=== PATIENT | male | born 1955 | race Caucasian/White ===

== ENCOUNTER 2017-01-13 19:20 | Observation (INO) ==
[2017-01-13] MEDS ORDERED: cefTRIAXone 1,000 MG in SODIUM CHLORIDE 0.9% 100 ML IV STA (19:56)
[2017-01-13] MEDS ORDERED: LABETALOL 20 MG/4 ML SYRINGE IV STA ×2 (19:56→22:59)
[2017-01-13] MEDS ORDERED: ALBUTEROL/IPRATROPIUM 3 ML NEB RESP TX STA (19:56)
[2017-01-13] MEDS ORDERED: cefTRIAXone 1,000 MG VIAL ONE (20:12)
[2017-01-13] MEDS ORDERED: SODIUM CHLORIDE 0.9% 100 ML IV ONE (20:12)
[2017-01-13] MEDS ORDERED: LABETALOL 20 MG/4 ML SYRINGE IV ONE ×2 (20:12→23:01)
[2017-01-13 20:16] LABS: Basophils % 0.5 % (0.0-0.8); Eosinophils # 0.1 10*3/uL (0.0-0.87); Eosinophils % 1.6 % (0.00-10.9); Hematocrit 32.6 VOL% (42.0-52.0); Hemoglobin 10.2 GM/DL (14.0-18.0); Immature Granulocytes % 0.3 %; Immature Granulocytes Absolute 0.03 #; Lymphocytes # 2.2 10*3/uL (1.4-4.0); Lymphocytes % 24.9 % (21.2-54.2); Mean Corpuscular HGB Conc 31.3 GM/DL (32-36); Mean Corpuscular Hemoglobin 30 PG (27-34); Mean Platelet Volume 10.2 FL (9.6-12.0); Monocytes # 0.7 10*3/uL (0.11-0.8); Monocytes % 8.3 % (1.7-12.7); Neutrophils # 5.7 10*3/uL (1.4-7.4); Neutrophils % 64.4 % (38.7-73.9); Platelet Count 288 T/CUMM (130-400); Red Blood Count 3.43 MC/CUMM (3.8-5.5); Red Cell Distribution Width 18.2 % (9.3-17.3); White Blood Count 8.8 T/CUMM (4-12)
[2017-01-13 20:22] LABS: INR 1.1; PT Patient Result 11.5 SECS
[2017-01-13 20:26] LABS: Alanine Aminotransferase 15 U/L (16-61); Albumin 3.7 G/DL (3.4-5.0); Alkaline Phosphatase 90 U/L (45-117); Aspartate Amino Transferase 14 U/L (0-37); Bilirubin,Total < 0.39 MG/DL (0.2-1.0); Blood Urea Nitrogen 14 MG/DL (7-18); Calcium 9.8 MG/DL (8.5-10.1); Glucose 101 MG/DL (74-106); Magnesium 2.5 MG/DL (1.8-2.4); Osmolality,Calculated 273.8 MOS/KG (273-304); Potassium 5.1 MMOL/L (3.5-5.1); Sodium 137 MMOL/L (136-145); Total Protein 7.2 G/DL (6.4-8.3)
--- NOTE | 2017-01-13 20:44 | XRay Report ---
XR chest 1V portable Indication: Shortness of breath Comparison: Chest x-ray 06/18/2016 Technique: Portable AP chest was performed. Findings: Heart size is minimally enlarged. Central vascular prominence is noted and cephalization of venous structures demonstrated interval increase in interstitial markings in the mid and lower lungs and scattered airspace opacities are present compatible with worsening CHF pulmonary edema. Bones and soft tissues demonstrate no significant abnormalities. ASCVD lead is suggested unchanged from comparison study. Impression: 1. Appearance of the chest suggests congestive heart failure and pulmonary edema. 01/13/2017 8:40 PM PROCEDURE INTERPRETED AT [facility] DEPARTMENT OF RADIOLOGY Final Report Signed by: Dr. Sukumar Edmonds
--- NOTE | 2017-01-13 20:48 | CT Report ---
CT chest PE study Indication: Shortness of breath. Comparison: Chest x-ray same date Technique: CT of the chest was performed following the administration of intravenous contrast. In addition to multiple contiguous axial source images obtained from the thoracic inlet through the upper abdomen, coronal and sagittal MPR series were performed as were thin slab MIP reconstructions in the coronal and sagittal plane. The CT examination was performed using one or more of the following dose reduction techniques: Automatic exposure control, adjustment of the mA and kV according to patient size, or iterative reconstruction techniques. Findings: Thickened intralobular septal lines are noted bilaterally within the lower lobes. Small bilateral pleural effusions additionally are present. Prominence of the dependent pulmonary vasculature is noted. A few of the bronchi within the lower lobes demonstrate wall thickening which could reflect lymphatic congestion. The heart size appears enlarged. There is a electronic lead implanted within the anterior subcutaneous tissue of the left chest. The pulmonary arteries are not well opacified in the lower chest. The left and right pulmonary artery as well as lobar pulmonary arteries and upper lobe segmental pulmonary arteries demonstrate no filling defects. Lower lobe subsegmental defects cannot be excluded. Esophagus is grossly unremarkable. No adenopathy is noted within the axilla, peng, or mediastinum. Soft tissues and musculature of the chest wall are unremarkable. The bony structures demonstrate no acute findings. The upper abdomen demonstrates multiple renal cysts and bilateral renal atrophy. Additionally, there is reflux of contrast within the hepatic venous system suggesting diminished cardiac output. Impression: 1. The appearance of the chest is most suggestive of congestive heart failure with pulmonary interstitial edema. No filling defects are noted within the central pulmonary arteries, lobar pulmonary arteries, or upper lobe segmental and subsegmental pulmonary arteries. Lower lobe segmental pulmonary arteries are not well opacified. 2. Small bilateral pleural effusions are present compatible with CHF. 01/13/2017 8:42 PM PROCEDURE INTERPRETED AT [facility] DEPARTMENT OF RADIOLOGY Final Report Signed by: Dr. Sukumar Edmonds
--- NOTE | 2017-01-13 20:58 | Emergency Department Note ---
Arrival - Arrival Chief Complaint: Shortness of Breath Stated Complaint: cant breathe ED Nursing Triage Note: patient states after leaving dialysis today he became short of breath, states he has trouble taking a deep breath and is sob while walking. o2 sat 99% at time of triage on ra. Mode of Arrival: Stretcher Time Seen by Provider: 01/13/17 19:54 - History of Present Illness HPI Narrative: History as above. The patient became more short of breath after he finished dialysis at 4 PM. He did finish his dialysis session. The patient has dyspnea on exertion and orthopnea. He denies any fever. He has a chronic nonproductive cough. He denies any chest pain. Allergies/Adverse Reactions: Allergies Allergy/AdvReac Type Severity Reaction Status Date / Time No Known Allergies Allergy Verified 04/18/15 18:40 Home Medications: Home Medications Medication Instructions Recorded Confirmed Type Allopurinol 100 mg PO DAILY 04/18/15 01/13/17 History Carvedilol [Coreg] 3.125 mg PO BID 04/18/15 01/13/17 History Gabapentin Cap/Tab [Neurontin 300 mg PO TID 04/18/15 01/13/17 History Cap/Tab] Zolpidem [Ambien] 10 mg PO BEDTIME 04/18/15 01/13/17 History clonazePAM [Klonopin] 1 mg PO DAILY PRN 04/18/15 01/13/17 History Lactulose Liquid [Chronulac] 15 ml PO BID PRN 05/21/15 01/13/17 History Docusate Sodium Cap [Colace Cap] 100 mg PO BID 06/06/16 01/13/17 History Furosemide Tab [Lasix Tab] 80 mg PO DAILY 06/06/16 01/13/17 History Oxycodone HCl/Acetaminophen 1 - 2 each PO Q4-6H PRN 06/06/16 01/13/17 History [Percocet 10-325 mg Tablet] Aspirin EC Tab 325 mg PO DAILY tablet 06/16/16 01/13/17 Rx Review of System - Review of System Review of Systems: I reviewed the rest review of systems unable as negative. Medical,Surgical,& Family Hx - Medical History Cardio: History of: CHF (nonischemic dilated cardiomyopathy, acute on chronic most likely secondary ), Hypertension, Cardiovascular Problems (NICM) Neurology: History of: Cerebrovascular Accident No history of: Seizures HEENT: History of: Eye Problem (wears glasses) Respiratory: History of: COPD Renal: History of: Dialysis (TTHS), Renal Failure Musculoskeletal: History of: Back/Neck Problems (Possible bulging disk) - Surgical History Cardiac Surgeries: Sugical HX of: Cardiac Catheterization (about a year ago.), Internal Defibrillator Thoracic Surgeries: Patient denies;: Organ Transplant, Lobectomy Neurologic Surgeries: Patient denies: Neurologic Surgery HEENT Surgeries: Surgical HX of: Eye Surgery (cararacts removed with implants.) Patient denies: Thyroid Surgery Abdominal Surgeries: Patient denies: Abdominal Surgery Reproductive Surgeries: Patient denies;: Genitourinary Surgery Orthopedic Surgeries: Surgical HX of;: Orthopedic Surgery, Total Hip Replacement (rt. knee) - Family History Family History: Reports;: Family Cancer (Father), Family Heart Disease (Mother- heart attack) - Social History Smoking Status: Former smoker Frequency of Alcohol Use: None Type of Drug Use: None Exam Physical Examination: The patient is in no acute distress HEENT: [Anicteric], [normocephalic], [extraocular muscles intact], [pupils equal round and reactive to light] Neck: [Supple], [no JVD], [trachea in the midline CV: Regular rate and rhythm, no murmurs Lungs: [He has bibasilar crackles], [bilateral breath sounds] Abdomen:[Nondistended], [nontender throughout] Extremities:[ No edema], [clubbing or cyanosis] Neurological exam: [Alert and oriented 3], [cranial nerves II through XII grossly intact], [nonfocal] Skin: [Warm and dry], [no rash] Vital Signs: Vital Signs Temperature 97.9 F 01/13/17 19:22 Pulse Rate 78 01/13/17 20:18 Respiratory Rate 20 01/13/17 20:18 Blood Pressure 166/101 01/13/17 19:22 O2 Sat by Pulse Oximetry 100 01/13/17 20:18 Course Course Narrative: The patient was given 2 DuoNeb treatments, labetalol IV and pain medication for his leg pain. The CT scan of the chest show no evidence of pulmonary embolus. The patient is shortness of breath improved with treatment. He will be admitted to the hospitalist service. Results - Labs CBC & BMP: 01/13/17 19:39 01/13/17 19:39 Lab Results: I have reviewed the patients labs - EKG EKG results: interpreted by ERMD, sinus rhythm, normal QRS - Impressions Sinus rhythm, rate 94, left lower axis, left ventricular hypertrophy, no ST elevations. - Diagnostic Findings Procedure: Chest x-ray: image reviewed by me, report reviewed by me, CT - chest : report reviewed by me Disposition Clinical Impression: Volume overload, COPD exacerbation Case discussed with: patient, patient's family, other (Hospitalist)
[2017-01-13] MEDS ORDERED: HYDROmorphone 2 MG/1 ML VIAL IV STA (21:30)
[2017-01-13] MEDS ORDERED: ONDANSETRON 4 MG/2 ML VIAL IV STA (21:32)
[2017-01-13] MEDS ORDERED: HYDROmorphone 2 MG/1 ML VIAL ONE (22:04)
[2017-01-13] MEDS ORDERED: ONDANSETRON 4 MG/2 ML VIAL ONE (22:04)
[2017-01-13 22:10] LABS: ABG Base Excess 8.8 MMOL/L (-2.5-2.5); ABG HCO3 32.8 MMOL/L (20-26); ABG Oxygen Saturation 93.4 % (95-100); ABG PCO2 42.7 MM HG (35-48); ABG PH 7.503 (7.35-7.45); ABG PO2 63.6 MM HG (80-95); ABG TCO2 34.1 MMOL/L (23-27); Allen Test Positive
[2017-01-13] MEDS ORDERED: LACTULOSE 20 GM/30 ML UDCUP PO PRN (23:10)
[2017-01-13] MEDS ORDERED: ALBUTEROL/IPRATROPIUM 3 ML NEB RESP TX PRN (23:13)
--- NOTE | 2017-01-13 23:18 | Hospitalist History & Physical ---
Assessment and Plan - Time spent with patient Time spent with patient: Greater than 30 minutes (1) Pulmonary edema Status: Acute Assessment and plan: Admit to monitored bed. Consult nephrology. Obtain echo.-Last echo December 2015 shows EF 20% with grade 3 diastolic dysfunction. Start Lasix IV twice daily. Although the patient has end-stage renal disease and receives dialysis, he still makes urine and takes Lasix by mouth at home. CT chest negative for pulmonary embolism. Positive for pulmonary edema. Current Visit: Yes Qualifiers: Chronicity: acute Qualified Code(s): J81.0 - Acute pulmonary edema (2) End stage renal disease Status: Chronic Assessment and plan: Continue scheduled dialysis Tuesday. Current Visit: Yes (3) Hypertension Status: Chronic Current Visit: Yes Qualifiers: Hypertension type: essential hypertension (4) Volume overload Status: Acute Current Visit: Yes Qualifiers: Hypervolemia type: unspecified Qualified Code(s): E87.70 - Fluid overload, unspecified History of Present Illness Chief complaint: SOB History of present illness: Mr. Parks is a 61 year old male with a history of hypertension, congestive heart failure, end-stage renal disease on dialysis presented to the emergency department today complaining of shortness of breath and dyspnea on exertion. The patient underwent regularly scheduled dialysis today with removal of 800 cc. He reports his dry weight has not changed. He was noted to have a markedly elevated blood pressure at triage in the emergency department. He was treated for COPD exacerbation. He underwent a CT of the chest with IV contrast to rule out pulmonary embolism which showed fluid overload and pulmonary edema with signs and symptoms consistent with congestive heart failure. Previous echo from December 2015 notes the patient has an ejection fraction of 20% and grade 3 diastolic dysfunction. He reports he still makes urine despite his dialysis and end-stage renal disease. He is on Lasix daily. His symptoms have improved since arrival to the emergency department. He is being admitted to the hospital for observation and continue diuresis with consultation with nephrology and repeat echocardiogram. His symptoms were acute and started this afternoon. They were persistent and severe prompting him to come to the emergency department. They have improved with nebulizer treatments and urine output and control of his blood pressure. Home Medications Medication Instructions Recorded Confirmed Type Allopurinol 100 mg PO DAILY 04/18/15 01/13/17 History Carvedilol [Coreg] 3.125 mg PO BID 04/18/15 01/13/17 History Gabapentin Cap/Tab [Neurontin 300 mg PO TID 04/18/15 01/13/17 History Cap/Tab] Zolpidem [Ambien] 10 mg PO BEDTIME 04/18/15 01/13/17 History clonazePAM [Klonopin] 1 mg PO DAILY PRN 04/18/15 01/13/17 History Lactulose Liquid [Chronulac] 15 ml PO BID PRN 05/21/15 01/13/17 History Docusate Sodium Cap [Colace Cap] 100 mg PO BID 06/06/16 01/13/17 History Furosemide Tab [Lasix Tab] 80 mg PO DAILY 06/06/16 01/13/17 History Oxycodone HCl/Acetaminophen 1 - 2 each PO Q4-6H PRN 06/06/16 01/13/17 History [Percocet 10-325 mg Tablet] Aspirin EC Tab 325 mg PO DAILY tablet 06/16/16 01/13/17 Rx Allergies Allergy/AdvReac Type Severity Reaction Status Date / Time No Known Allergies Allergy Verified 04/18/15 18:40 Medical,Surgical,& Family Hx - Medical History Cardio: History of: CHF (nonischemic dilated cardiomyopathy, acute on chronic most likely secondary ), Hypertension, Cardiovascular Problems (NICM) Neurology: History of: Cerebrovascular Accident No history of: Seizures HEENT: History of: Eye Problem (wears glasses) Respiratory: History of: COPD Renal: History of: Dialysis (TTHS), Renal Failure Musculoskeletal: History of: Back/Neck Problems (Possible bulging disk) - Surgical History Cardiac Surgeries: Sugical HX of: Cardiac Catheterization (about a year ago.), Internal Defibrillator Thoracic Surgeries: Patient denies;: Organ Transplant, Lobectomy Neurologic Surgeries: Patient denies: Neurologic Surgery HEENT Surgeries: Surgical HX of: Eye Surgery (cararacts removed with implants.) Patient denies: Thyroid Surgery Abdominal Surgeries: Patient denies: Abdominal Surgery Reproductive Surgeries: Patient denies;: Genitourinary Surgery Orthopedic Surgeries: Surgical HX of;: Orthopedic Surgery, Total Hip Replacement (rt. knee) - Family History Family History: Reports;: Family Cancer (Father), Family Heart Disease (Mother- heart attack) - Social History Smoking Status: Former smoker Frequency of Alcohol Use: None Type of Drug Use: None Marital Status: Lives With:: Spouse Functional capacity: independent ambulation 12 point system: reviewed and no additional remarkable complaints except as stated - Cardiovascular Cardiovascular: Present: as per HPI, dyspnea on exertion. Absent: edema, palpitations - Respiratory Respiratory: Present: dyspnea, dyspnea on exertion - Gastrointestinal Gastrointestinal: Present: bloating Exam - Constitutional Vitals: Period Temp Pulse Resp BP Sys/Mitchell Pulse Ox Last 24 Hr 97.9 F-97.9 F 78-89 17-20 166-166/101-101 99-100 Exam: Constitutional System: No distress. No tremulousness. Patient is pleasant and cooperative. Alert awake and oriented 3 Head: Normocephalic, atraumatic. Ears, Nose and Throat System: No pain or tenderness. No epistaxis or discharge Eyes System: Pupils equal, round, and reactive. Extraocular muscles intact. Neck: Supple, without adenopathy, No jugular venous distention. No thyromegaly, neck mass, or prior surgery apparent. Respiratory System: Chest rales to auscultation bilaterally. Cardiovascular System: Heart with regular rate and rhythm. No murmur. GI System: Abdomen soft, nontender. Normo active bowel sounds present. Musculoskeletal System: limbs with no pedal edema. Full distal pulses. Neurological System: No discernable sensory deficit. No aphasia Psychiatric System: Conversation is rational Results - Labs CBC & BMP: 01/13/17 19:39 01/13/17 19:39 Lab Results: I have reviewed the past 24 hour labs - Diagnostic Findings Procedure: Chest x-ray: report reviewed by me, image reviewed by me, CT - chest : report reviewed by me, image reviewed by me
[2017-01-14] MEDS ORDERED: ZOLPIDEM 5 MG TABLET PO PRN (01:01)
[2017-01-14] MEDS: clonazePAM 0.5 MG TABLET PO PRN (01:11)
[2017-01-14] MEDS: ZALEPLON 5 MG CAPSULE PO SCH ×3 (01:11→20:00)
[2017-01-14] MEDS: oxyCODONE/ACETAMINOPHEN 5-325 MG TABLET PO PRN ×5 (01:11→20:05)
--- NOTE | 2017-01-14 03:10 | EKG Report ---
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
[2017-01-14 06:55] LABS: Osmolality,Calculated 275.7 MOS/KG (273-304); Potassium 4.7 MMOL/L (3.5-5.1)
--- NOTE | 2017-01-14 08:44 | EKG Report ---
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
[2017-01-14] MEDS: FUROSEMIDE 40 MG/4 ML VIAL IV SCH ×2 (09:00→17:34)
[2017-01-14] MEDS: ASPIRIN EC 325 MG TABLET PO SCH (09:00)
[2017-01-14] MEDS: CARVEDILOL 3.125 MG TABLET PO SCH ×2 (09:00→20:09)
[2017-01-14] MEDS: ALLOPURINOL 100 MG TABLET PO SCH (09:01)
[2017-01-14] MEDS: GABAPENTIN 300 MG CAPSULE PO SCH ×4 (09:01→20:10)
[2017-01-14] MEDS: DOCUSATE SODIUM 100 MG CAPSULE PO SCH ×2 (09:01→20:09)
--- NOTE | 2017-01-14 16:31 | Hospitalist Progress Note ---
Assessment and Plan (1) Acute exacerbation of chronic obstructive airways disease Status: Acute Assessment and plan: The patient will continue on beta agonist nebulized breathing therapy and we will have consultation with the expanded duty dental assistant. I expect that he will have dialysis tomorrow. Current Visit: No (2) ESRD (end stage renal disease) on dialysis Problem details: No acute indication for HD at this time. Routine HD today. Status: Acute Current Visit: No (3) Anemia Status: Acute Current Visit: No Hospitalist: Subjective Interval history: The patient has less shortness of breath today. The patient requests bronchodilator treatment which seemed to help. The patient's regular dialysis today will be tomorrow. Exam - Constitutional Vitals: Period Temp Pulse Resp BP Sys/Mitchell Pulse Ox Last 24 Hr 96.8 F-97.9 F 71-89 17-20 100-167/72-101 93-100 General appearance: no acute distress - Respiratory Respiratory exam: Present: rales (In bases) - Cardiovascular Cardiovascular exam: Present: regular rate and rhythm - GI/Abdominal GI/Abdominal exam: Present: normal bowel sounds Results - Labs CBC & BMP: 01/13/17 19:39 01/14/17 05:15 Lab Results: I have reviewed the past 24 hour labs
--- NOTE | 2017-01-14 17:52 | ECHO Report ---
Jenny Parks Exam Date: 01/14/2017 13:54 Referring Physician: Technologist: Dianna Scruggs RDCS Age: 61 Ht (in): 67 Wt (lb): 137 Gender: M Exam Location: [facility] Echo Indications: Pulmonary edema, End stage renal disease, Essential (primary) hypertension, Volume overload, Dyspnea, unspecified, COPD, Non ischemic cardiomyopathy BP: 157 / 72 HR: 75 Rhythm: Sinus Technical Quality: Fair IMPRESSIONS 1. The left ventricle is dilated with left ventricular hypertrophy and global hypokinesis that is severe with ejection fraction 20%. 2. Left atrium is moderately dilated. 3. Right ventricle and right atrium are normal size. 4. Mitral valve thickened with mild regurgitation. 5. Aortic valve is anatomically functionally normal. It may be slightly thickened it worse. 6. Mild tricuspid valve regurgitation. 7. Mild elevated right-sided pressures. MEASUREMENTS (Male / Female) Normal Values 2D ECHO LV Diastolic Diameter PLAX 6.4 cm 4.2 - 5.9 / 3.9 - 5.3 cm LV Systolic Diameter PLAX 5.7 cm LV Fractional Shortening PLAX 11.4 % IVS Diastolic Thickness 1.1 cm 0.6 - 1.0 / 0.6 - 0.9 cm LVPW Diastolic Thickness 1.1 cm 0.6 - 1.0 / 0.6 - 0.9 cm RV Internal Dim ED PLAX 4.1 cm Aortic Root Diameter 3.2 cm LA Systolic Diameter LX 4.5 cm 3.0 - 4.0 / 2.7 - 3.8 cm DOPPLER TR Peak Velocity 347.0 cm/s TR Peak Gradient 48.2 mmHg FINDINGS Left Ventricle Moderately increased left ventricular cavity size. Mild left ventricular hypertrophy. Left ventricular ejection fraction is estimated at 20 %. Right Ventricle The right ventricle is normal in size and function. Right Atrium The right atrium is normal in size. Left Atrium Moderately increased left atrial size. Mitral Valve Mildly thickened mitral valve. Mild mitral valve regurgitation. Aortic Valve Trileaflet aortic valve. Trace aortic valve regurgitation. Tricuspid Valve Morphologically normal tricuspid valve. Mild tricuspid valve regurgitation. Tricuspid regurgitation velocities suggest a PAP of 58 mmHg. Pulmonic Valve Morphologically normal pulmonic valve without significant stenosis. There is no pulmonic regurgitation. Pericardium Normal pericardium without effusion. Aorta Normal ascending aorta dimension. Stephen Reeves MD (Electronically Signed) Final Date: 14 January 2017 17:51
--- NOTE | 2017-01-14 19:09 | Nephrology Consult Note ---
History of Present Illness Chief complaint: End-stage renal disease History of present illness: Mr. Parks is a 61 year old male with history of end-stage renal disease due to hypertension currently dialyzes at the [facility] dialysis unit on a Tuesday schedule. Moreover, patient has a history of CHF with an EF of approximately 20%. The patient underwent hemodialysis on yesterday and was able to remove approximately 800 cc of fluid at that time. Of note patient still voids and is on scheduled Lasix daily. However after dialysis he returned home where he started having more shortness of breath. Initially thought the patient had COPD exacerbation changes. He was evaluated in the emergency department with a lung CT scan that showed evidence of pulmonary edema. Nephrology is been consulted for renal issues. Plan for hemodialysis on tomorrow and reestablishing a lower dry weight for this patient. Home Medications Medication Instructions Recorded Confirmed Type Allopurinol 100 mg PO DAILY 04/18/15 01/14/17 History Carvedilol [Coreg] 3.125 mg PO BID 04/18/15 01/14/17 History Zolpidem [Ambien] 10 mg PO BEDTIME 04/18/15 01/14/17 History clonazePAM [Klonopin] 1 mg PO DAILY PRN 04/18/15 01/14/17 History Lactulose Liquid [Chronulac] 15 ml PO BID PRN 05/21/15 01/14/17 History Oxycodone HCl/Acetaminophen 1 - 2 each PO Q4-6H PRN 06/06/16 01/14/17 History [Percocet 10-325 mg Tablet] Atorvastatin [Lipitor] 10 mg PO DAILY 01/14/17 01/14/17 History Clopidogrel [Plavix] 75 mg PO DAILY 01/14/17 01/14/17 History Furosemide Tab [Lasix Tab] 80 mg PO DAILY 01/14/17 01/14/17 History Lisinopril/Hydrochlorothiazide 20 mg PO DAILY 01/14/17 01/14/17 History [Lisinopril-Hctz 20-12.5 mg Tab] Allergies Allergy/AdvReac Type Severity Reaction Status Date / Time No Known Allergies Allergy Verified 04/18/15 18:40 Medical,Surgical,& Family Hx - Medical History Cardio: History of: CHF (nonischemic dilated cardiomyopathy, acute on chronic most likely secondary ), Hypertension, Cardiovascular Problems (NICM) Neurology: History of: Cerebrovascular Accident No history of: Seizures HEENT: History of: Eye Problem (wears glasses) Respiratory: History of: COPD Renal: History of: Dialysis (TTHS), Renal Failure Musculoskeletal: History of: Back/Neck Problems (Possible bulging disk) - Surgical History Cardiac Surgeries: Sugical HX of: Cardiac Catheterization (about a year ago.), Internal Defibrillator Thoracic Surgeries: Patient denies;: Organ Transplant, Lobectomy Neurologic Surgeries: Patient denies: Neurologic Surgery HEENT Surgeries: Surgical HX of: Eye Surgery (cararacts removed with implants.) Patient denies: Thyroid Surgery Abdominal Surgeries: Patient denies: Abdominal Surgery Reproductive Surgeries: Patient denies;: Genitourinary Surgery Orthopedic Surgeries: Surgical HX of;: Orthopedic Surgery, Total Hip Replacement (rt. knee) - Family History Family History: Reports;: Family Cancer (Father), Family Heart Disease (Mother- heart attack) - Social History Smoking Status: Former smoker Frequency of Alcohol Use: None Type of Drug Use: None Review of Systems Constitutional: fatigue, no anorexia, no chills, no fever(s), no frequent falls Nose, mouth and throat: no dysphagia, no headache(s) Cardiovascular: dyspnea, dyspnea on exertion, no chest pain at rest, no chest pain with activity Gastrointestinal: no abdominal pain, no bloating Neurological: no abnormal gait Exam - Vital Signs Vital signs: Period Temp Pulse Resp BP Sys/Mitchell Pulse Ox Last 24 Hr 96.8 F-97.9 F 71-89 17-20 100-167/72-101 93-100 - General Appearance General appearance: well-developed, well-nourished, fatigue EENT: ATNC Neck: supple Respiratory: clear Cardiology: no edema, regular rate, regular rhythm Gastrointestinal: normoactive bowel sounds, no tenderness Integumentary: no rash Neurologic: alert and oriented x3 Musculoskeletal: no clubbing Psychiatric: mood/affect appropriate, cooperative Results - Labs CBC & BMP: 01/13/17 19:39 01/14/17 05:15 Assessment and Plan (1) End stage renal disease Status: Chronic Assessment and plan: We will continue with schedule hemodialysis for this patient. Plan for dialysis on tomorrow. Current Visit: Yes (2) NICM (nonischemic cardiomyopathy) Status: Chronic Current Visit: No (3) CHF (congestive heart failure) Status: Chronic Assessment and plan: Ejection fraction approximately 20%. Current Visit: No Qualifiers: Congestive heart failure type: combined (4) Hypertension Status: Chronic Current Visit: Yes Qualifiers: Hypertension type: essential hypertension (5) Volume overload Status: Acute Assessment and plan: Plan for hemodialysis on tomorrow. Patient is currently on Lasix. Current Visit: Yes Qualifiers: Hypervolemia type: unspecified Qualified Code(s): E87.70 - Fluid overload, unspecified (6) Pulmonary edema Status: Acute Current Visit: Yes Qualifiers: Chronicity: acute Qualified Code(s): J81.0 - Acute pulmonary edema
[2017-01-14] MEDS: ALBUTEROL/IPRATROPIUM 3 ML NEB RESP TX SCH (20:51)
[2017-01-15] MEDS: oxyCODONE/ACETAMINOPHEN 5-325 MG TABLET PO PRN ×6 (00:07→20:21)
[2017-01-15] MEDS: ALBUTEROL/IPRATROPIUM 3 ML NEB RESP TX SCH ×4 (00:32→20:07)
[2017-01-15] MEDS: FUROSEMIDE 40 MG/4 ML VIAL IV SCH ×2 (08:23→16:33)
[2017-01-15] MEDS: CARVEDILOL 3.125 MG TABLET PO SCH ×2 (08:25→20:21)
[2017-01-15] MEDS: DOCUSATE SODIUM 100 MG CAPSULE PO SCH ×2 (08:25→20:21)
[2017-01-15] MEDS: CLOPIDOGREL 75 MG TABLET PO SCH (08:25)
[2017-01-15] MEDS: ATORVASTATIN 10 MG TABLET PO SCH (08:25)
[2017-01-15] MEDS: clonazePAM 0.5 MG TABLET PO PRN (08:25)
[2017-01-15] MEDS: LISINOPRIL/HCTZ 20-12.5 MG TABLET PO SCH (08:25)
[2017-01-15] MEDS: GABAPENTIN 300 MG CAPSULE PO SCH ×3 (08:27→20:21)
[2017-01-15] MEDS: ALLOPURINOL 100 MG TABLET PO SCH (08:27)
[2017-01-15] MEDS ORDERED: FUROSEMIDE 80 MG TABLET PO SCH (09:00)
[2017-01-15] MEDS: ASPIRIN EC 325 MG TABLET PO SCH (12:11)
--- NOTE | 2017-01-15 12:46 | Hospitalist Progress Note ---
Assessment and Plan (1) Acute exacerbation of chronic obstructive airways disease Status: Acute Assessment and plan: The patient will continue on beta agonist nebulized breathing therapy and we will have consultation with the environmental service aide. I expect that he will have dialysis today. He might go home following dialysis if less shortness of breath. Current Visit: No (2) ESRD (end stage renal disease) on dialysis Problem details: No acute indication for HD at this time. Routine HD today. Status: Acute Current Visit: No (3) Anemia Status: Acute Current Visit: No Hospitalist: Subjective Interval history: Mr. Parks has less shortness of breath today. He will have hemodialysis with a new lower dry weight today. Perhaps he could be discharged home after dialysis. Exam - Constitutional Vitals: Period Temp Pulse Resp BP Sys/Mitchell Pulse Ox Last 24 Hr 97.6 F-97.8 F 71-88 16-20 148-164/83-98 92-100 General appearance: no acute distress - Respiratory Respiratory exam: Present: rales (In bases) - Cardiovascular Cardiovascular exam: Present: regular rate and rhythm - GI/Abdominal GI/Abdominal exam: Present: normal bowel sounds Results - Labs CBC & BMP: 01/13/17 19:39 01/14/17 05:15 Lab Results: I have reviewed the past 24 hour labs
[2017-01-15] MEDS: ZALEPLON 5 MG CAPSULE PO SCH (20:22)
[2017-01-16] MEDS: ALBUTEROL/IPRATROPIUM 3 ML NEB RESP TX SCH ×2 (00:04→07:34)
[2017-01-16] MEDS: oxyCODONE/ACETAMINOPHEN 5-325 MG TABLET PO PRN ×3 (02:00→10:25)
[2017-01-16 02:16] LABS: Basophils % 0.6 % (0.0-0.8); Eosinophils # 0.3 10*3/uL (0.0-0.87); Eosinophils % 3.9 % (0.00-10.9); Hematocrit 28.4 VOL% (42.0-52.0); Hemoglobin 8.6 GM/DL (14.0-18.0); Immature Granulocytes % 0.3 %; Immature Granulocytes Absolute 0.02 #; Lymphocytes % 31.5 % (21.2-54.2); Mean Corpuscular HGB Conc 30.3 GM/DL (32-36); Mean Corpuscular Hemoglobin 29 PG (27-34); Mean Corpuscular Volume 95.9 FL (87-102); Monocytes # 0.7 10*3/uL (0.11-0.8); Monocytes % 10.3 % (1.7-12.7); Neutrophils # 3.4 10*3/uL (1.4-7.4); Neutrophils % 53.4 % (38.7-73.9); Platelet Count 189 T/CUMM (130-400); Red Blood Count 2.96 MC/CUMM (3.8-5.5); White Blood Count 6.4 T/CUMM (4-12)
[2017-01-16 03:00] LABS: Calcium 9.2 MG/DL (8.5-10.1); Magnesium 2.8 MG/DL (1.8-2.4); Osmolality,Calculated 275.8 MOS/KG (273-304); Potassium 5.2 MMOL/L (3.5-5.1)
[2017-01-16] MEDS: DOCUSATE SODIUM 100 MG CAPSULE PO SCH (09:14)
[2017-01-16] MEDS: LISINOPRIL/HCTZ 20-12.5 MG TABLET PO SCH (09:14)
[2017-01-16] MEDS: CARVEDILOL 3.125 MG TABLET PO SCH (09:14)
[2017-01-16] MEDS: CLOPIDOGREL 75 MG TABLET PO SCH (09:14)
[2017-01-16] MEDS: ATORVASTATIN 10 MG TABLET PO SCH (09:15)
[2017-01-16] MEDS: ASPIRIN EC 325 MG TABLET PO SCH (09:15)
[2017-01-16] MEDS: ALLOPURINOL 100 MG TABLET PO SCH (09:15)
[2017-01-16] MEDS: GABAPENTIN 300 MG CAPSULE PO SCH (09:18)
[2017-01-16] MEDS: FUROSEMIDE 40 MG/4 ML VIAL IV SCH (10:23)
--- NOTE | 2017-01-16 11:47 | Discharge Summary ---
Hospital Course - Hospital Course Hospital Course: This is a 61-year-old man who was admitted to the hospital with shortness of breath and wheezing. He had volume overload. He had some asthma. The patient improved with diuretic medication, beta agonist nebulized breathing therapy, and with dialysis. Dr. Dunlap was consulted and Dr. Dunlap reduce the patient's dry weight target for dialysis. On the date of discharge the patient's wheezing has resolved and is now ready for discharge home. On the date of discharge, chest is clear, heart has regular rate and rhythm, and abdomen soft. The patient was screened for tobacco smoking and found to be a prior smoker. The patient was given 4 minutes tobacco education for avoidance and to remain off tobacco. The patient has his own decision maker and wishes to be full code. The patient's medications were reconciled at the time of admission as well as at the time of discharge. Discharge procedures including evaluation, education, and reconciliation and coordination of care with the specialist required 32 minutes on the date of discharge. - Time spent with patient Time with patient DS: Greater than 30 minutes Time spent discussing smoking cessation with patient: 3 to 10 minutes Diagnosis - Discharge Diagnosis (1) Acute exacerbation of chronic obstructive airways disease Status: Resolved (2) ESRD (end stage renal disease) on dialysis Status: Chronic (3) Anemia Status: Chronic Discharge Plan - Discharge Data Disposition: Disch To Home/Self Care Condition at Discharge: Stable Discharge Diet: heart healthy Activity: resume usual activities as tolerated - Discharge Medications Continue Zolpidem [Ambien] 10 mg PO BEDTIME Allopurinol 100 mg PO DAILY Carvedilol [Coreg] 3.125 mg PO BID clonazePAM [Klonopin] 1 mg PO DAILY PRN PRN Reason: Anxiety Lactulose Liquid [Chronulac] 15 ml PO BID PRN PRN Reason: Constipation Clopidogrel [Plavix] 75 mg PO DAILY Atorvastatin [Lipitor] 10 mg PO DAILY Lisinopril/Hydrochlorothiazide [Lisinopril-Hctz 20-12.5 mg Tab] 20 mg PO DAILY Furosemide Tab [Lasix Tab] 80 mg PO DAILY Oxycodone HCl/Acetaminophen [Percocet 10-325 mg Tablet] 1 - 2 each PO Q4-6H PRN PRN Reason: Pain Moderate (4-7) - Follow Up or Referral Follow Up: Dialysis,[facility] [Other] - Forms/Instructions Exam - Constitutional Vitals: Period Temp Pulse Resp BP Sys/Mitchell Pulse Ox Last 24 Hr 97 F-97.8 F 82-99 17-20 156-170/83-90 93-100 Discharge Results Labs on day of discharge: Labs from last 24 hours 01/16/17 01/16/17 01:51 01:51 WBC 6.4 RBC 2.96 L Hgb 8.6 L Hct 28.4 L MCV 95.9 MCH 29 MCHC 30.3 L RDW 19.0 H Plt Count 189 D MPV 10.0 Neut % (Auto) 53.4 Lymph % (Auto) 31.5 [place] % (Auto) 10.3 Eos % (Auto) 3.9 Baso % (Auto) 0.6 Neut # (Auto) 3.4 Lymph # (Auto) 2.0 [place] # (Auto) 0.7 Eos # (Auto) 0.3 Baso # (Auto) 0.0 Immature Gran % 0.3 Nucleated RBC % 0.0 Immature Gran # 0.02 Nucleated RBCs # 0.00 Immature Plt Fraction 0.0 Sodium 137 Potassium 5.2 H Chloride 101 Carbon Dioxide 28 Anion Gap 13.2 BUN 25 H Creatinine 5.10 H GFR Calculation 11 BUN/Creatinine Ratio 4.00 L Glucose 84 Calculated Osmolality 275.8 Calcium 9.2 Magnesium 2.8 H DS: Provider Date of admission: 01/13/17 23:04 Primary care physician: . No PCP Attending physician on admission: Joe Zavala MD Consults: 01/14/17 06:04 Consult to Physician [CONS] Routine Comment: known to you Consulting Provider: Alex Mendoza Jr. Consulting Provider Notified: Yes When should Consulting Provider be notified: In am Consult to Specialist Group: Nephrology When should Consulting Provider be notified: Now Person Notified: DR MENDOZA NOTIFIED OF CONSULT Date Notified: 01/14/17 Time Notified: 11:07 Discharging clinician: Reagan Mirza MD
[2017-01-16 14:14] VITALS: BP 159/86
== END 2017-01-16 13:30 | disposition home or self-care (01) ==
LOC: N.EDINP 19:20 → N.ED 19:20 → SUATTDRO 23:04 → N.4E 01-14 00:09
PROVIDERS: ADMIT Family Medicine; ATTEND Internal Medicine

== ENCOUNTER 2017-05-18 20:18 | Inpatient (IN) ==
[2017-05-18 21:27] LABS: Basophils % 0.5 % (0.0-0.8); Eosinophils # 0.2 10*3/uL (0.0-0.87); Eosinophils % 2.5 % (0.00-10.9); Hematocrit 32.6 VOL% (42.0-52.0); Hemoglobin 10.2 GM/DL (14.0-18.0); Immature Granulocytes % 0.4 %; Immature Granulocytes Absolute 0.03 #; Lymphocytes # 2.2 10*3/uL (1.4-4.0); Lymphocytes % 28.4 % (21.2-54.2); Mean Corpuscular HGB Conc 31.3 GM/DL (32-36); Mean Corpuscular Hemoglobin 29 PG (27-34); Mean Corpuscular Volume 92.4 FL (87-102); Mean Platelet Volume 10.9 FL (9.6-12.0); Monocytes # 0.8 10*3/uL (0.11-0.8); Monocytes % 10.3 % (1.7-12.7); Neutrophils # 4.5 10*3/uL (1.4-7.4); Neutrophils % 57.9 % (38.7-73.9); Platelet Count 172 T/CUMM (130-400); Red Blood Count 3.53 MC/CUMM (3.8-5.5); Red Cell Distribution Width 19.5 % (9.3-17.3); White Blood Count 7.8 T/CUMM (4-12)
[2017-05-18 22:24] LABS: Albumin 3.3 G/DL (3.4-5.0); Bilirubin,Total 0.4 MG/DL (0.2-1.0); Calcium 9.7 MG/DL (8.5-10.1); Magnesium 2.8 MG/DL (1.8-2.4); Osmolality,Calculated 289.1 MOS/KG (273-304); Potassium 5.6 MMOL/L (3.5-5.1); Total Protein 6.9 G/DL (6.4-8.3); Troponin I Only 0.037 NG/ML (0.00-0.045)
[2017-05-18] MEDS ORDERED: MORPHINE 10 MG/1 ML VIAL IV STA (23:00)
[2017-05-18] MEDS ORDERED: ONDANSETRON 4 MG/2 ML VIAL IV STA (23:00)
[2017-05-18] MEDS ORDERED: MORPHINE 2 MG/1 ML SYRINGE ONE (23:36)
[2017-05-18] MEDS ORDERED: ONDANSETRON 4 MG/2 ML VIAL ONE (23:36)
[2017-05-19] MEDS ORDERED: LIDOCAINE/PRILOCAINE CREAM 5 GM TUBE TOP ONE (04:36)
[2017-05-19 05:56] LABS: Basophils % 0.5 % (0.0-0.8); Eosinophils # 0.2 10*3/uL (0.0-0.87); Hematocrit 32.6 VOL% (42.0-52.0); Immature Granulocytes % 0.1 %; Immature Granulocytes Absolute 0.01 #; Lymphocytes # 2.3 10*3/uL (1.4-4.0); Lymphocytes % 29.6 % (21.2-54.2); Mean Corpuscular HGB Conc 30.7 GM/DL (32-36); Mean Corpuscular Hemoglobin 28 PG (27-34); Mean Corpuscular Volume 92.1 FL (87-102); Mean Platelet Volume 11.3 FL (9.6-12.0); Monocytes # 0.8 10*3/uL (0.11-0.8); Monocytes % 9.9 % (1.7-12.7); Neutrophils # 4.4 10*3/uL (1.4-7.4); Neutrophils % 56.9 % (38.7-73.9); Platelet Count 161 T/CUMM (130-400); Red Blood Count 3.54 MC/CUMM (3.8-5.5); Red Cell Distribution Width 19.5 % (9.3-17.3); White Blood Count 7.8 T/CUMM (4-12)
[2017-05-19 06:34] LABS: Calcium 9.5 MG/DL (8.5-10.1); Osmolality,Calculated 288.3 MOS/KG (273-304); Risk Ratio 1.75; VLDL CHOLESTEROL 17.2 MG/DL
[2017-05-19] MEDS ORDERED: LACTULOSE 20 GM/30 ML UDCUP PO PRN (08:30)
[2017-05-19] MEDS: ALLOPURINOL 100 MG TABLET PO SCH (09:51)
[2017-05-19] MEDS: CARVEDILOL 6.25 MG TABLET PO SCH ×2 (09:51→16:35)
[2017-05-19] MEDS: LISINOPRIL 20 MG TABLET PO SCH ×2 (09:51→21:09)
[2017-05-19] MEDS: CLOPIDOGREL 75 MG TABLET PO SCH (09:51)
[2017-05-19] MEDS: ENOXAPARIN 30 MG/0.3 ML SYRINGE SUBCUT SCH (09:51)
[2017-05-19] MEDS: BUMETANIDE 1 MG/4 ML VIAL IV SCH ×2 (09:57→16:38)
[2017-05-19] MEDS: oxyCODONE/ACETAMINOPHEN 5-325 MG TABLET PO PRN ×2 (16:36→21:09)
[2017-05-19] MEDS ORDERED: ATORVASTATIN 10 MG TABLET PO SCH (21:00)
[2017-05-19] MEDS ORDERED: ZALEPLON 5 MG CAPSULE PO SCH (21:00)
[2017-05-19] MEDS ORDERED: clonazePAM 0.5 MG TABLET PO SCH (21:00)
[2017-05-20] MEDS: oxyCODONE/ACETAMINOPHEN 5-325 MG TABLET PO PRN ×3 (04:38→12:45)
[2017-05-20] MEDS: ENOXAPARIN 30 MG/0.3 ML SYRINGE SUBCUT SCH (09:25)
[2017-05-20] MEDS: CARVEDILOL 6.25 MG TABLET PO SCH (09:25)
[2017-05-20] MEDS: LISINOPRIL 20 MG TABLET PO SCH (09:25)
[2017-05-20] MEDS: ALLOPURINOL 100 MG TABLET PO SCH (09:25)
[2017-05-20] MEDS: CLOPIDOGREL 75 MG TABLET PO SCH (09:25)
[2017-05-20] MEDS: BUMETANIDE 1 MG/4 ML VIAL IV SCH (09:27)
[2017-05-20 11:57] VITALS: BP 137/76
== END 2017-05-20 13:55 | DRG 291 ==
LOC: N.ED 20:18 → N.EDINP 23:48 → N.2E 05-19 02:50
PROVIDERS: ADMIT Hospitalist; ATTEND Hospitalist

== ENCOUNTER 2017-06-12 21:42 | Inpatient (IN) ==
[2017-06-12] MEDS ORDERED: LABETALOL 20 MG/4 ML SYRINGE IV STA (21:50)
[2017-06-12] MEDS ORDERED: hydrALAZINE 20 MG/1 ML VIAL ONE (21:50)
[2017-06-12] MEDS ORDERED: hydrALAZINE 20 MG/1 ML VIAL IV STA (21:50)
[2017-06-12] MEDS ORDERED: LABETALOL 20 MG/4 ML SYRINGE IV ONE (21:50)
[2017-06-12] MEDS ORDERED: KETAMINE 500 MG/10 ML VIAL IM STA (21:51)
[2017-06-12] MEDS ORDERED: ROCURONIUM 100 MG/10 ML VIAL IV STA (21:51)
[2017-06-12 22:34] LABS: Basophils # 0.1 10*3/uL (0.0-0.2); Basophils % 0.5 % (0.0-0.8); Eosinophils % 0.4 % (0.00-10.9); Hematocrit 35.4 VOL% (42.0-52.0); Hemoglobin 11.2 GM/DL (14.0-18.0); Immature Granulocytes % 0.5 %; Immature Granulocytes Absolute 0.05 #; Lymphocytes # 1.1 10*3/uL (1.4-4.0); Lymphocytes % 11.4 % (21.2-54.2); Mean Corpuscular HGB Conc 31.6 GM/DL (32-36); Mean Corpuscular Hemoglobin 30 PG (27-34); Mean Corpuscular Volume 93.7 FL (87-102); Mean Platelet Volume 11.6 FL (9.6-12.0); Monocytes # 0.6 10*3/uL (0.11-0.8); Monocytes % 6.2 % (1.7-12.7); Neutrophils # 7.9 10*3/uL (1.4-7.4); Platelet Count 182 T/CUMM (130-400); Red Blood Count 3.78 MC/CUMM (3.8-5.5); Red Cell Distribution Width 19.5 % (9.3-17.3); White Blood Count 9.8 T/CUMM (4-12)
[2017-06-12] MEDS ORDERED: ETOMIDATE 20 MG/10 ML VIAL IV ONE (22:35)
[2017-06-12] MEDS ORDERED: ROCURONIUM 100 MG/10 ML VIAL IV ONE (22:35)
[2017-06-12 22:57] LABS: Albumin 3.2 G/DL (3.4-5.0); Bilirubin,Total 0.5 MG/DL (0.2-1.0); Calcium 9.2 MG/DL (8.5-10.1); Osmolality,Calculated 287.7 MOS/KG (273-304); Potassium 5.5 MMOL/L (3.5-5.1); Total Protein 6.7 G/DL (6.4-8.3)
[2017-06-12 23:03] LABS: Troponin I Only 0.073 NG/ML (0.00-0.045)
[2017-06-13] MEDS ORDERED: BUMETANIDE 1 MG/4 ML VIAL ONE (00:08)
[2017-06-13 00:17] LABS: ABG Base Excess 2.2 MMOL/L (-2.5-2.5); ABG PCO2 32.3 MM HG (35-48); ABG PH 7.506 (7.35-7.45); ABG PO2 82.4 MM HG (80-95); Allen Test Positive; Pt O2 Delivery Device BIPAP
[2017-06-13] MEDS: BUMETANIDE 1 MG/4 ML VIAL IV SCH ×3 (00:22→22:03)
[2017-06-13] MEDS: HALOPERIDOL 5 MG/ML AMP IV PRN ×5 (05:54→17:30)
[2017-06-13 06:15] LABS: Basophils % 0.2 % (0.0-0.8); Hematocrit 30.1 VOL% (42.0-52.0); Hemoglobin 9.5 GM/DL (14.0-18.0); Immature Granulocytes % 0.3 %; Immature Granulocytes Absolute 0.03 #; Lymphocytes # 0.7 10*3/uL (1.4-4.0); Lymphocytes % 7.9 % (21.2-54.2); Mean Corpuscular HGB Conc 31.6 GM/DL (32-36); Mean Corpuscular Hemoglobin 29 PG (27-34); Mean Corpuscular Volume 92.6 FL (87-102); Mean Platelet Volume 11.7 FL (9.6-12.0); Monocytes # 0.7 10*3/uL (0.11-0.8); Neutrophils # 7.4 10*3/uL (1.4-7.4); Neutrophils % 83.6 % (38.7-73.9); Platelet Count 157 T/CUMM (130-400); Red Blood Count 3.25 MC/CUMM (3.8-5.5); White Blood Count 8.9 T/CUMM (4-12)
[2017-06-13 06:53] LABS: Calcium 9.3 MG/DL (8.5-10.1); Osmolality,Calculated 287.5 MOS/KG (273-304); Potassium 5.7 MMOL/L (3.5-5.1)
[2017-06-13] MEDS ORDERED: MORPHINE 2 MG/1 ML SYRINGE IV ONE (14:49)
[2017-06-13] MEDS ORDERED: MORPHINE 2 MG/1 ML SYRINGE IV PRN (15:41)
[2017-06-14] MEDS: hydrALAZINE 20 MG/1 ML VIAL IV PRN ×2 (01:04→11:07)
[2017-06-14] MEDS: HALOPERIDOL 5 MG/ML AMP IV PRN ×3 (02:11→17:26)
[2017-06-14] MEDS ORDERED: METOPROLOL TARTRATE 5 MG/5 ML VIAL IV PRN (06:00)
[2017-06-14] MEDS: BUMETANIDE 1 MG/4 ML VIAL IV SCH ×3 (09:35→21:30)
[2017-06-14] MEDS: hydrALAZINE 20 MG/1 ML VIAL IV SCH ×2 (15:16→20:59)
[2017-06-14] MEDS ORDERED: METOPROLOL TARTRATE 5 MG/5 ML VIAL IV SCH (18:00)
[2017-06-14] MEDS: MORPHINE 10 MG/1 ML VIAL IV PRN (21:09)
[2017-06-14] MEDS: METOPROLOL TARTRATE 5 MG/5 ML VIAL IV SCH (22:30)
[2017-06-15] MEDS: hydrALAZINE 20 MG/1 ML VIAL IV SCH (02:36)
[2017-06-15] MEDS: METOPROLOL TARTRATE 5 MG/5 ML VIAL IV SCH (05:19)
[2017-06-15] MEDS ORDERED: LACTULOSE 160 GM/240 ML BOTTLE PO PRN (06:07)
[2017-06-15] MEDS ORDERED: oxyCODONE/ACETAMINOPHEN 5-325 MG TABLET PO PRN (08:16)
[2017-06-15] MEDS: MORPHINE 10 MG/1 ML VIAL IV PRN (11:30)
[2017-06-15] MEDS: BUMETANIDE 1 MG/4 ML VIAL IV SCH ×2 (14:11→21:43)
[2017-06-15] MEDS: LISINOPRIL 20 MG TABLET PO SCH ×2 (14:12→21:43)
[2017-06-15] MEDS: CARVEDILOL 3.125 MG TABLET PO SCH ×2 (14:12→21:40)
[2017-06-15] MEDS: ISOSORBIDE MONONITRATE 30 MG TABLET PO SCH (14:12)
[2017-06-15] MEDS: CLOPIDOGREL 75 MG TABLET PO SCH (14:12)
[2017-06-15] MEDS: ALLOPURINOL 100 MG TABLET PO SCH (14:12)
[2017-06-15 17:57] LABS: ABG Base Excess 1.5 MMOL/L (-2.5-2.5); ABG HCO3 25.7 MMOL/L (20-26); ABG Oxygen Saturation 98.4 % (95-100); ABG PCO2 38.9 MM HG (35-48); ABG PH 7.428 (7.35-7.45); ABG TCO2 21.7 MMOL/L (23-27)
[2017-06-15] MEDS ORDERED: ATORVASTATIN 10 MG TABLET PO SCH (21:00)
[2017-06-15] MEDS ORDERED: OSELTAMIVIR 30 MG CAPSULE PO ONE (21:00)
[2017-06-15] MEDS ORDERED: PENICILLIN G BENZATHINE 1,200,000 UNIT/2 ML SYRINGE IM ONE (21:00)
[2017-06-16 06:36] LABS: Calcium 10.2 MG/DL (8.5-10.1); Magnesium 2.9 MG/DL (1.8-2.4); Osmolality,Calculated 289.2 MOS/KG (273-304); Potassium 5.9 MMOL/L (3.5-5.1)
[2017-06-16 06:39] LABS: Troponin I Only 0.538 NG/ML (0.00-0.045)
[2017-06-16 06:57] LABS: Basophils % 0.2 % (0.0-0.8); Immature Granulocytes % 0.6 %; Immature Granulocytes Absolute 0.05 #; Lymphocytes # 0.8 10*3/uL (1.4-4.0); Lymphocytes % 10.1 % (21.2-54.2); Mean Corpuscular HGB Conc 32.3 GM/DL (32-36); Mean Corpuscular Hemoglobin 29 PG (27-34); Mean Corpuscular Volume 89.4 FL (87-102); Monocytes # 1.3 10*3/uL (0.11-0.8); Monocytes % 15.6 % (1.7-12.7); Neutrophils # 6.1 10*3/uL (1.4-7.4); Neutrophils % 73.5 % (38.7-73.9); Platelet Count 177 T/CUMM (130-400); Red Cell Distribution Width 19.1 % (9.3-17.3); White Blood Count 8.3 T/CUMM (4-12)
[2017-06-16 06:59] LABS: Hemoglobin 15.5 GM/DL (14.0-18.0); Red Blood Count 5.37 MC/CUMM (3.8-5.5)
[2017-06-16 07:23] LABS: Band Neutrophils 3 % (0-10); Lymphocytes 10 % (20-55); Segmented Neutrophils 71 % (50-85); Total Cells Counted 100
[2017-06-16 07:24] LABS: Giant Platelets Few; Hypochromasia 1+; Platelet Estimate Normal
[2017-06-16] MEDS: CLOPIDOGREL 75 MG TABLET PO SCH (08:47)
[2017-06-16] MEDS: BUMETANIDE 1 MG/4 ML VIAL IV SCH (08:47)
[2017-06-16] MEDS: LISINOPRIL 20 MG TABLET PO SCH (08:48)
[2017-06-16] MEDS: ALLOPURINOL 100 MG TABLET PO SCH (08:48)
[2017-06-16] MEDS: ISOSORBIDE MONONITRATE 30 MG TABLET PO SCH (08:48)
[2017-06-16] MEDS: CARVEDILOL 3.125 MG TABLET PO SCH (08:51)
[2017-06-16] MEDS: MORPHINE 10 MG/1 ML VIAL IV PRN (18:37)
[2017-06-16] MEDS ORDERED: OSELTAMIVIR 30 MG CAPSULE PO SCH (21:00)
[2017-06-16 22:00] VITALS: BP 146/57
== END 2017-06-16 19:32 | disposition expired | DRG 291 ==
LOC: EDBD → EDUNIT# → N.ED 21:42 → N.EDINP 23:13 → N.CC 06-13 00:44
PROVIDERS: ADMIT Internal Medicine; ATTEND Internal Medicine